=== PATIENT | female | born 1985 | race Caucasian/White ===

== ENCOUNTER 2021-01-01 10:49 | Emergency (ER) | payer OTHER ==
[2021-01-01 13:44] LABS: BASOPHIL 1.1 % (0-2); EOSINOPHIL 0.7 % (0-5); HCT 43.7 % (37.0-47.0); LYMPHOCYTE 27.6 % (15-48); MCH 30.1 pg (25.0-31.0); MPV 9.9 fL (6.0-9.5); NEUTROPHIL 59.3 % (41-80); NRBC 0; PLT 339 K/uL (150-400); RBC 4.65 M/uL (4.20-5.40); RDW 13.1 % (11.5-14.0); WBC 7.6 K/uL (4.0-10.5)
[2021-01-01 13:58] LABS: ALBUMIN 3.8 g/dL (3.4-5.0); BILIRUBIN - TOTAL 0.5 mg/dL (0.2-1.0); BUN/CREAT RATIO (CALC) 18.3 RATIO; CREATININE 0.6 mg/dL (0.51-0.95); GLOBULIN (CALCULATION) 4.5 g/dL; POTASSIUM 4.3 mmol/L (3.5-5.1); TOTAL PROTEIN 8.3 g/dL (6.4-8.2)
[2021-01-01 14:00] LABS: BILIRUBIN NEGATIVE (NEGATIVE); BLOOD 1+ Ery/uL (NEGATIVE); CLARITY CLEAR (CLEAR); COLOR YELLOW (YELLOW); GLUCOSE (U) NORMAL (NORMAL); LEUKOCYTES NEGATIVE Leu/uL (NEGATIVE); NITRITE NEGATIVE (NEGATIVE); PROTEIN NEGATIVE (NEGATIVE); UROBILINOGEN 0.2 mg/dL (0.2-1.0)
[2021-01-01 14:15] LABS: BACTERIA TRACE; URINARY WBC RARE
[2021-01-01] MEDS ORDERED: VIBRAMYCIN100 MG PO (15:37)
== END 2021-01-01 16:17 | disposition home or self-care (01) ==
LOC: FER 10:49
PROVIDERS: Nurse Practitioner Family
DX: R51.9 Headache, unspecified (principal); R59.0 Localized enlarged lymph nodes
CPT/HCPCS: 36415; 70450; 70491; 80053; 81001; 85025; J7030; Q9967